=== PATIENT | male | born 1975 | race Caucasian/White ===

== ENCOUNTER 2018-03-16 22:23 | Emergency (ER) | payer MEDICAID, OTHER ==
[~2018-03-16] VITALS: Ht 177.8 cm; Wt 79.4 kg
[2018-03-16 22:28] VITALS: BP 132/79
== END 2018-03-16 23:15 | disposition home or self-care (01) ==
LOC: ED 23:07
DX: B02.9 Zoster without complications (principal); Z88.0 Allergy status to penicillin
CPT/HCPCS: 99283

== ENCOUNTER 2019-02-02 18:37 | Emergency (ER) | payer MEDICAID ==
[~2019-02-02] VITALS: Ht 172.7 cm; Wt 81.6 kg
[2019-02-02 21:54] VITALS: BP 137/90
== END 2019-02-02 23:44 ==
LOC: ED 19:55
DX: S01.81XA Laceration without foreign body of other part of head, initial encounter (principal); S02.31XA Fracture of orbital floor, right side, initial encounter for closed fracture; H05.821 Myopathy of extraocular muscles, right orbit; F17.200 Nicotine dependence, unspecified, uncomplicated; V89.2XXA Person injured in unspecified motor-vehicle accident, traffic, initial encounter; V47.5XXA Car driver injured in collision with fixed or stationary object in traffic accident, initial encounter; Y93.89 Activity, other specified; Y92.410 Unspecified street and highway as the place of occurrence of the external cause; Y99.8 Other external cause status
CPT/HCPCS: 13132; 13133; 36415; 70450; 70486; 71045; 72125; 80048; 82040; 85025; 90471; 90715; 96374; 96375; 96376; 99285; J1170; J2270; J2405; J3490